=== PATIENT | male | born 1960 | race Caucasian/White ===

== ENCOUNTER 2024-12-13 05:26 | Emergency (ER) | payer OTHER, SELFPAY ==
[2024-12-13 05:26] VITALS: BMI 26.3
[2024-12-13 05:29] VITALS: BP 148/100
[2024-12-13 05:44] VITALS: BP 147/101
[2024-12-13 06:00] VITALS: BP 149/109
--- NOTE | 2024-12-13 06:02 | ED.GENMED ---
History of Present Illness
<Martha Neal MD, Resident - Last Filed: 12/13/24 14:25>
General
Chief Complaint: Abdominal Pain
Source: patient and spouse
Exam Limitations: none
Time Seen by Provider: 12/13/24 06:01
History of Present Illness
History of Present Illness:
64-year-old male comes to the emergency department due to recent increased nausea and vomiting that has been happening since Friday afternoon. Patient was at the beach and had been drinking and partying and started feeling nauseous and having to
vomit since then. He has had cyclical vomiting as well as diarrhea and has been feeling very dehydrated. He has not been able to eat well and has tried to keep him hydrated with IV fluids but he is not able to keep them down. Alongside the
symptoms, he has had epigastric pain but it has not been intense. He has had some diarrhea alongside of the vomiting however he has also had regular bowel movements as well. He has not noticed any blood or mucus in either vomiting or diarrhea. He
has had events like this in the past which were treated with IV fluid resuscitation and omeprazole. He decided to come in today due to persistence of symptoms.
Past History
<Martha Neal MD, Resident - Last Filed: 12/13/24 14:25>
Past History
ED Past Medical History: HTN
ED Past Surgical History: Other (Umbilical Hernia)
Social History
Tobacco: Non-smoker
Alcohol: Daily (2-4 drinks of bourbon and coke)
Drug: None
Personal:
Living: with family
Employment: Employed
Review of Systems
<Martha Neal MD, Resident - Last Filed: 12/13/24 14:25>
Review of Systems
Allergies reviewed?: Yes
Constitutional: Reports fatigue
EENT: Reports no symptoms
Respiratory: Reports no symptoms
Cardiac: Reports no symptoms
ABD/GI: Reports abdominal pain, nausea, vomiting and diarrhea
: Reports no symptoms
Musculoskeletal: Reports no symptoms
Skin: Reports no symptoms
Neurological: Reports no symptoms
Endocrine: Reports no symptoms
Hematologic/Lymphatic: Reports no symptoms
Psychiatric: Reports no symptoms
Phy Exam
<Martha Neal MD, Resident - Last Filed: 12/13/24 14:25>
General Physical Exam
General Presentation: mild distress
General Skin: warm and dry
General Habitus: normal
General Mental: alert
General Hydration: appears well hydrated
Cardiovascular Exam
Cardiovascular Exam: regular rate/rhythm and no murmur
Pulmonary Exam
Pulmonary Exam: lungs clear, no respiratory distress, no crackles and no wheezing
Gastrointestinal Exam
Gastrointestinal Exam: normal bowel sounds, distended and tender (Epigastric tenderness)
Auscultation of Abdomen: normal
Course
<Martha Neal MD, Resident - Last Filed: 12/13/24 14:25>
Orders/Labs/Results
Orders:
Orders
12/13/24
Electrocardiogram (*1) Stat
Reason for Study: Chest Pain
12/13/24 05:33
IV Insert/Care/Rem.- Treatment PRN
Straight cath- Treatment ONCE
12/13/24 05:53
Electrocardiogram (*1) Urgent
Reason for Study: Abdominal Pain
Cardiac Monitoring- Treatment ONCE
12/13/24 05:54
EKG- Treatment ONCE
12/13/24 06:12
Complete Blood Count/With Diff Urgent
Comprehensive Metabolic Panel Urgent
Lipase Urgent
Urinalysis Reflex To Culture Urgent
Date Specimen was Collected: 12/13/24
Time Specimen was Collected: 05:34
Urine Microscopic Reflex Cult Urgent
Urine Culture Urgent
[place]AL[place] Source: U
Specimen Description:
Obtained by: Random
Date Specimen was Collected: 12/13/24
Time Specimen was Collected: 05:34
12/13/24 06:42
0.9% Sodium Chloride 1000 ml [Nss] 1,000 ml IV BOLUS
Ondansetron Injectable [Zofran] 4 mg IV NOW STA
12/13/24 06:48
Pantoprazole [Protonix IV] 40 mg IV NOW STA
12/13/24 06:50
Troponin I Urgent
12/13/24 07:07
EKG- Treatment ONCE
12/13/24 08:51
0.9% Sodium Chloride 1000 ml [Nss] 1,000 ml IV BOLUS
Abnormal Lab Results
12/13/24
06:12
MCH 32.8 H pg
(27.0-31.0)
Absolute Neuts (auto) 8.5 H 10^3/uL
(1.4-6.5)
Absolute Lymphs (auto) 0.7 L 10^3/uL
(1.2-3.4)
Absolute Monos (auto) 0.9 H 10^3/uL
(0.1-0.6)
Neutrophils % 84.5 H %
(42.2-75.2)
Lymphocytes % 6.5 L %
(20.5-51.1)
Carbon Dioxide 21 L mmol/L
(22-30)
BUN 36 H mg/dl
(9-20)
Glucose 160 H mg/dl
(70-99)
Calcium 10.5 H mg/dl
(8.4-10.2)
ALT 60 H U/L
(0-50)
Urine Ketones 3+ A
(Negative)
Ur Occult Blood Reflex 1+ A
(Negative)
Urine Bilirubin 2+ A
(Negative)
Leukocyte Esterase Rfl 1+ A
(Negative)
Urine Bacteria (Reflex) Many A
(Negative)
Urine Glucose 1+ A
(Negative)
Urine Albumin (Reflex) 3+ A
(Neg - Trace)
12/13/24 06:12
12/13/24 06:12
Vital Signs
Initial and Last Documented VS:
Initial Vital Signs
Temp Pulse Resp BP Pulse Ox
98.1 F 120 20 148/100 98
12/13/24 05:29 12/13/24 05:29 12/13/24 05:29 12/13/24 05:29 12/13/24 05:29
Last Documented Vital Signs
Temp Pulse Resp BP Pulse Ox
98.1 F 89 16 144/96 98
12/13/24 05:29 12/13/24 10:28 12/13/24 10:28 12/13/24 10:28 12/13/24 10:28
<Eliot Whatley MD - Last Filed: 12/13/24 13:08>
Orders/Labs/Results
Orders:
Orders
12/13/24
Electrocardiogram (*1) Stat
Reason for Study: Chest Pain
12/13/24 05:33
IV Insert/Care/Rem.- Treatment PRN
Straight cath- Treatment ONCE
12/13/24 05:53
Electrocardiogram (*1) Urgent
Reason for Study: Abdominal Pain
Cardiac Monitoring- Treatment ONCE
12/13/24 05:54
EKG- Treatment ONCE
12/13/24 06:12
Complete Blood Count/With Diff Urgent
Comprehensive Metabolic Panel Urgent
Lipase Urgent
Urinalysis Reflex To Culture Urgent
Date Specimen was Collected: 12/13/24
Time Specimen was Collected: 05:34
Urine Microscopic Reflex Cult Urgent
Urine Culture Urgent
[place] Source: U
Specimen Description:
Obtained by: Random
Date Specimen was Collected: 12/13/24
Time Specimen was Collected: 05:34
12/13/24 06:42
0.9% Sodium Chloride 1000 ml [Nss] 1,000 ml IV BOLUS
Ondansetron Injectable [Zofran] 4 mg IV NOW STA
12/13/24 06:48
Pantoprazole [Protonix IV] 40 mg IV NOW STA
12/13/24 06:50
Troponin I Urgent
12/13/24 07:07
EKG- Treatment ONCE
12/13/24 08:51
0.9% Sodium Chloride 1000 ml [Nss] 1,000 ml IV BOLUS
Abnormal Lab Results
12/13/24
06:12
MCH 32.8 H pg
(27.0-31.0)
Absolute Neuts (auto) 8.5 H 10^3/uL
(1.4-6.5)
Absolute Lymphs (auto) 0.7 L 10^3/uL
(1.2-3.4)
Absolute Monos (auto) 0.9 H 10^3/uL
(0.1-0.6)
Neutrophils % 84.5 H %
(42.2-75.2)
Lymphocytes % 6.5 L %
(20.5-51.1)
Carbon Dioxide 21 L mmol/L
(22-30)
BUN 36 H mg/dl
(9-20)
Glucose 160 H mg/dl
(70-99)
Calcium 10.5 H mg/dl
(8.4-10.2)
ALT 60 H U/L
(0-50)
Urine Ketones 3+ A
(Negative)
Ur Occult Blood Reflex 1+ A
(Negative)
Urine Bilirubin 2+ A
(Negative)
Leukocyte Esterase Rfl 1+ A
(Negative)
Urine Bacteria (Reflex) Many A
(Negative)
Urine Glucose 1+ A
(Negative)
Urine Albumin (Reflex) 3+ A
(Neg - Trace)
12/13/24 06:12
12/13/24 06:12
Vital Signs
Initial and Last Documented VS:
Initial Vital Signs
Temp Pulse Resp BP Pulse Ox
98.1 F 120 20 148/100 98
12/13/24 05:29 12/13/24 05:29 12/13/24 05:29 12/13/24 05:29 12/13/24 05:29
Last Documented Vital Signs
Temp Pulse Resp BP Pulse Ox
98.1 F 89 16 144/96 98
12/13/24 05:29 12/13/24 10:28 12/13/24 10:28 12/13/24 10:28 12/13/24 10:28
<Martha Neal MD, Resident - Last Filed: 12/13/24 14:25>
MDM/Problems Addressed
Differential Diagnosis Includes:
Gastroenteritis, pancreatitis, hyperemesis syndrome, acute [place]
MDM/Problems Addressed:
Plan:
- EKG ordered and reviewed, no changes since previous EKG, QTc 508ms, will recheck EKG
- Will give IV fluids
- Will give IV Zofran and recheck EKG
- Will check troponin levels
- Will give IV Protonix
- Awaiting CMP and lipase result
<Martha Neal MD, Resident - Last Filed: 12/13/24 14:25>
*Pulse Oximetry
SaO2: 98
Oxygen Mode of Delivery: Room air
Patient hypoxic: no
*Critical Care Note
Total Time (30-74mins, 75-104mins- exclusive of procedures): Not Applicable
<Martha Neal MD, Resident - Last Filed: 12/13/24 14:25>
Update Note
Update Note:
-Urinalysis shows 1+ leukocyte Esterase, but has squamous cells. Low probability of UTI as has no symptoms such as dysuria, flank pain or fever.
-CMP and lipase levels do not show any acute abnormalities, mild elevation in ALT most likely from chronic alcohol use
-Repeat EKG to check for QTc
-Troponins negative
-Patient feeling better and less nauseous. Feels like he is ready for discharge home.
ED Attending Note
<Martha Neal MD, Resident - Last Filed: 12/13/24 14:25>
-
Portions of this chart may have been created with voice recognition software.� Occasional wrong word or��sound alike� substitutions may have occurred due to the inherent limitations of voice recognition software.
<Eliot Whatley MD - Last Filed: 12/13/24 13:08>
ED Attending Note
Patient seen and examined by attending physician: Yes
I performed a history and physical exam of patient and discussed management with resident, I reviewed resident's note and agree with documented findings and plan of care.: Yes
ED Attending Note:
64-year-old male complaining of nausea vomiting starting 3 days ago. Became worse the last few days. Had 1 episode of loose stool yesterday. Normal bowel movement this morning. No blood or mucus in the stool. Mild epigastric discomfort mostly
recurrent nausea and vomiting. Has been an issue in the past. Admits to 2-4 drinks per day. Denies chest pain shortness of breath fever. Denies urinary symptoms.
GENERAL: Alert and oriented in no apparent distress
EYE: Orbits normal.
NECK: Supple
CARDIAC: Tachycardic and regular no murmur
LUNGS: Clear breath sounds,normal
ABDOMEN: Bowel sounds present. Minimally distended. Mild epigastric tenderness. No rebound or guarding no mass or hernia.
NEUROLOGICAL: Alert and oriented , grossly non-focal
SKIN: Warm and dry, no rash or lesion, no discoloration, skin intact.
MUSCULOSKELETAL: No edema,no deformity.Good color
PSYCH: Normal and appropriate interaction.
Impression recurring episodes of nausea vomiting. Moderate EtOH use chronically. Previous similar episodes responded to antiemetics and fluids. Differential would include alcoholic hepatitis/gastritis/gastroenteritis/pancreatitis. Doubt acute
surgical issue such as volvulus or intussusception. Low suspicion for obstruction. Will treat symptomatically check cardiac testing for completeness reevaluate. If improved and feeling much better can hold on radiologic testing. To consider
further radiologic testing if symptoms or not improved. QT interval slightly long on the first EKG. Will repeat EKG has a low suspicion for QT issues prior to giving Zofran
Patient ambulated out of the ER feeling much better. In no distress. Discussed prolonged QT intervals and precautions for follow-up
-
Discussed prolonged portions of this chart may have been created with voice recognition software.� Occasional wrong word or��sound alike� substitutions may have occurred due to the inherent limitations of voice recognition software.
Discharge Plan
Departure
Patient Disposition: Home (Routine Discharge)
Date of Disposition: 12/13/24
Time of Disposition: 10:26
Patient with high blood pressure during this ER visit?: Yes
Condition: Good
Discharge Problem:
Nausea and vomiting in adult
Instructions: Nausea and Vomiting, Adult (DC), Gastritis (DC), High blood pressure - ED discharge instructions
Prescriptions:
No Action
lisinopril 20 MG tablet
40 mg PO DAILY
naproxen sodium [Aleve] 220 MG tablet
220 mg PO DAILYPRN PRN (Reason: mild pain)
loratadine 10 MG tablet
10 mg PO DAILYPRN PRN (Reason: allergies)
Centrum Silver 1 EACH tablet
1 ea PO DAILY
Referrals:
Juan J Blackwell MD [Family Provider, Internal Medicine]
Interventions
Interventions:
*Risk Screen - Suicide Last Done: 12/13/24 05:29
*General Assessment Last Done: 12/13/24 05:29
*Neglect/Abuse Screening Last Done: 12/13/24 05:29
*ED- Fall Risk Assessment Last Done: 12/13/24 05:29
*ED COVID-19 Vaccine History Last Done: 12/13/24 05:29
*Nursing Disposition Last Done: 12/13/24 10:28
GP-Xqgram-Nlprmmdxup Assessment Last Done: 12/13/24 07:33
Discharge Date and Time
Discharge Date/Time: 12/13/24 10:29
Print Language: MACEDONIAN
[2024-12-13 06:22] LABS: Hematocrit 44.2 % (39.0-52.0); Hemoglobin 15.5 g/dL (13.0-18.0); Mean Corp Hgb Conc. 35.1 g/dL (33.0-37.0); Mean Corpuscular Volume 93.6 fL (80.0-94.0); Nucleated Red Blood Cells % 0 % (-); Platelet Count 195 10^3/uL (130-400); Red Cell Dist. Width 12.8 % (11.5-14.5)
[2024-12-13 06:45] LABS: ALT (SGPT) 60 U/L (0-50); AST (SGOT) 40 U/L (17-59); Albumin 4.9 g/dl (3.5-5.0); Alkaline Phosphatase 50 U/L (38-126); Blood Urea Nitrogen 36 mg/dl (9-20); Calcium 10.5 mg/dl (8.4-10.2); Carbon Dioxide 21 mmol/L (22-30); Chloride 107 mmol/L (98-107); Estimated Creatinine Clearance 68 ml/min; Glucose 160 mg/dl (70-99); Lipase 139 U/L (23-300); Potassium 4.7 mmol/L (3.5-5.1); Sodium 140 mmol/L (135-145); Total Protein 7.5 g/dl (6.3-8.2); eGFR > 60.00
[2024-12-13 06:49] LABS: Urine Character Slightly Cloudy (Clear)
[2024-12-13] MEDS: ZOFRAN 4 MG IV (06:54)
[2024-12-13] MEDS: PROTONIX IV 40 MG IV (06:54)
[2024-12-13] MEDS: NSS 1000 IV ×2 (06:56→09:03)
[2024-12-13 07:08] LABS: Urine Red Blood Cell 0-2 /HPF (0-2)
[2024-12-13 07:23] LABS: Troponin I < 0.012 ng/ml
[2024-12-13 07:33] VITALS: BP 149/101
[2024-12-13 09:04] VITALS: BP 141/97
[2024-12-13 10:28] VITALS: BP 144/96
== END 2024-12-13 10:29 | disposition home or self-care (01) ==
LOC: EMR 05:26
PROVIDERS: Emergency Medicine; EMERGENCY PHYSICIAN Emergency Medicine; FAMILY PHYSICIAN Internal Medicine
DX: R11.2 Nausea with vomiting, unspecified (principal); I10 Essential (primary) hypertension; I45.10 Unspecified right bundle-branch block
CPT/HCPCS: 99283; 96374; 96375; 96361; 80053; 81003; 81015; 83690; 84484; 85025; 87086; 93005